=== PATIENT | male | born 1955 | race Caucasian/White ===

== ENCOUNTER 2017-07-16 07:45 | Emergency (ER) | payer BC ==
[~2017-07-16] VITALS: Ht 182.9 cm; Wt 90.0 kg
[2017-07-16 07:47] VITALS: BP 150/70; PULSE 113; RESP 16; TEMP 99.1; O2SAT 97
--- NOTE | 2017-07-16 08:10 | PD ---
HPI Chief Complaint: Skin Problem Time Seen by Provider: 07:55 Travel History International Travel<30 days: No Contact w/Intl Traveler<30days: No Traveled to known affect area: No History of Present Illness HPI 61-year-old male presents emergency Department with complaint of a rash to his left upper extremity since either Thursday or Thursday. He reports it is itchy at times. Denies pain. Says he does have pain in his left upper back and has noticed a spot to his left flank area that is consistent with the current rash on his left arm. Denies fever, vomiting. Denies shortness of breath, wheezing , airway edema, tongue edema. Denies new exposures to lotions, soaps, detergents, foods, perfumes. Did take Aleve for the first time on Thursday and then noted the rash on either Thursday or Thursday and does not know if taking the Aleve isn't associated. Has history of chickenpox. His has had shingles in the past. He has tried hydrocortisone and Benadryl for symptom management. No known aggravating or relieving factors. Primary care provider is in [place]. Allergies to penicillin, Dilaudid, morphine. History of lymphoma. Has no other medical complaints. No other modifying factors or associated signs and symptoms. [facility] Social History Tobacco Use: No Allergies-Medications (Allergen,Severity, Reaction): Coded Allergies: hydromorphone (Verified Allergy, Severe, hallucinations, 07/16/17) morphine (Verified Allergy, Severe, hallucinations, 07/16/17) penicillin V (Verified Allergy, Unknown, 07/16/17) Reported Meds & Prescriptions Reported Meds & Active Scripts Active Acyclovir 800 Mg Tab 800 Mg PO 5 TIMES A DAY 7 Days Review of Systems Except as stated in HPI: all other systems reviewed are Neg Physical Exam Narrative GENERAL: Well-nourished, well-developed male patient, in no acute distress; afebrile, nontoxic-appearing SKIN: Warm and dry. Left arm with erythremic grouped vesicles present in a dermatomal distribution; 1 vesicle noted to the left upper back/flank area. No drainage or edema. HEAD: Atraumatic. Normocephalic. EYES: Pupils equal and round. No scleral icterus. No injection or drainage. ENT: Mucosa pink and moist. Airway patent. NECK: Trachea midline. CARDIOVASCULAR: Regular rate and rhythm. No murmur appreciated. RESPIRATORY: No accessory muscle use. Lungs sounds clear and equal bilaterally. GASTROINTESTINAL: Flat. MUSCULOSKELETAL: No obvious deformities. No clubbing. No cyanosis. No edema. NEUROLOGICAL: Awake and alert. Oriented 3. No obvious cranial nerve deficits. Motor grossly within normal limits. Normal speech. PSYCHIATRIC: Appropriate mood and affect; insight and judgment normal. Data Data Last Documented VS Vital Signs Date Time Temp Pulse Resp B/P (MAP) Pulse Ox O2 Delivery O2 Flow Rate FiO2 07/16/17 08:40 91 07/16/17 07:47 99.1 16 97 Orders Orders Acyclovir (Zovirax) (07/16/17 08:15) Ed Discharge Order (07/16/17 08:16) [facility] Medical Decision Making Medical Screen Exam Complete: Yes Emergency Medical Condition: Yes Medical Record Reviewed: Yes Differential Diagnosis Shingles, hives, nonspecific rash, contact dermatitis Narrative Course 61-year-old male physical exam consistent with shingles rash to the left upper extremity. Patient is afebrile and nontoxic-appearing. Denies fever, vomiting. Acyclovir administered in the ER. I offered The patient pain control and he declined. Acyclovir prescribed for home. I offered the patient prescription for pain medication for home and he says he doesn't like to take pain medication and will just take ibuprofen or Tylenol as needed. Instructed Patient to avoid Aleve and he verbalized understanding and agreement. Instructed patient to follow up with primary care provider. Patient verbalizes understanding and agreement with treatment plan. Patient is medically cleared and stable for discharge. Discussed reasons to return to the emergency department. Patient agrees with treatment plan. The patients vital signs are stable and the patient is stable for outpatient follow-up and treatment. Patient discharged home, stable and in no acute distress. Diagnosis Primary Impression: Shingles rash Qualified Codes: B02.9 - Zoster without complications Referrals: Primary Care Physician Patient Instructions: General Instructions, Shingles (ED) Additional Instructions: Shingles is contagious Keep area covered with clothing to avoid spreading to others Wash hands frequently Take medications as prescribed Cold, wet compresses to the rash to help relieve itching and pain as needed Cool Bath to help relieve itching and pain as needed Follow-up with a primary care provider Return to the emergency department immediately with worsening of symptoms Med/Other Pt SpecificInfo: Prescription(s) given Scripts Acyclovir (Acyclovir) 800 Mg Tab 800 MG PO 5 TIMES A DAY for Mgmt Viral Infection for 7 Days, TAB 0 Refills Prov: Fide Gamboa 07/16/17 Disposition: 01 DISCHARGE HOME Condition: Stable Fide Gamboa Jul 16, 2017 08:10
[2017-07-16] MEDS ORDERED: ACYCLOVIR 800 MG TAB PO ONE (08:15)
[2017-07-16] MEDS ORDERED: ACYC800T PO (08:16)
== END 2017-07-16 08:40 | disposition home or self-care (01) ==
LOC: NEPD 07:45
DX: B02.9 Zoster without complications (principal)
CPT/HCPCS: 99283